=== PATIENT | female | born 1970 | race Caucasian/White ===

== ENCOUNTER 2016-07-04 16:23 | Emergency (ER) | payer OTHER ==
[~2016-07-04] VITALS: Ht 165.1 cm; Wt 60.0 kg
[~2016-07-04 16:23] MED LIST: CALC-187 PO; MULTCAP13 PO; PERC5TAB12 PO; TRIPCAP4 PO; VITA10002 PO; VITA100O PO; ZOFR8TAB4 PO
[2016-07-04 16:24] VITALS: BP 121/76; PULSE 69; RESP 16; TEMP 97.6; O2SAT 100
--- NOTE | 2016-07-04 17:11 | PD ---
HPI Chief Complaint: Injury Time Seen by Provider: 17:00 Travel History International Travel<30 days: No Contact w/Intl Traveler<30days: No Traveled to known affect area: No History of Present Illness HPI 46 year old female presents for evaluation of right ankle and foot pain and left knee abrasion. She reports that prior to arrival in the parking lot, stepped on some acorns and twisted her right ankle in an inversion mechanism. She has pain in the lateral right ankle and foot which is aching, constant, worse with movement. She has a pain associated with the abrasions to the anterior left knee as well. She is able to ambulate, mostly puts her weight on her left leg secondary to the right ankle and foot pain. She denies any other injuries and she has no other complaints. She believes that her last tetanus vaccination was within 5 years. PFSH Past Medical History Cancer: No Cardiovascular Problems: No Diabetes: No Endocrine: No Hepatitis: No Hiatal Hernia: No Immune Disorder: No Musculoskeletal: No Neurologic: No Reproductive: No Respiratory: No Thyroid Disease: No Past Surgical History Abdominal Surgery: Yes () Body Medical Devices: NONE Cardiac Surgery: No Section: Yes Ear Surgery: No Endocrine Surgery: No Eye Surgery: No Genitourinary Surgery: No Gynecologic Surgery: No Oral Surgery: No Pacemaker: No Thoracic Surgery: No Social History Alcohol Use: Yes (RARE) Tobacco Use: No Allergies-Medications (Allergen,Severity, Reaction): Coded Allergies: Latex (Verified Allergy, Severe, Rash, 07/04/16) Sulfa (Verified Allergy, Severe, Rash, 07/04/16) EDEMA Betadine (Verified Allergy, Unknown, 07/04/16) Reported Meds & Prescriptions Reported Meds & Active Scripts Active Reported Zofran Odt (Ondansetron HCl) 8 Mg Tab 8 Mg PO Q8 PRN Percocet 5-325 mg (Oxycodone/Acetaminophen) Oxycodone 5/325 Acetaminophen Tab 1- 2 Tab PO Q4H PRN Calcium 500/Vitamin D3 (Calcium Carbonate/Cholecalciferol) /Vit D3 Tab 1 Tab PO DAILY Vitamin B12 (Cyanocobalamin) 1,000 Mcg Tab 1,000 Mcg PO DAILY Triple Martell Complex (Martell 3 Fatty Acids-Martell 6 Fa) Cap 1 Cap PO DAILY Vitamin E 100 Unit Oil 100 Unit PO DAILY Multi Complete (Multiple Vitamins W/ Minerals) Complete Cap 1 Tab PO DAILY Review of Systems Musculoskeletal: Positive: Pain Skin: Positive Other (positive for abrasion) Physical Exam Narrative GENERAL: Well-developed well-nourished female in no acute distress SKIN: Warm and dry. Abrasion anterior left knee HEAD: Atraumatic. Normocephalic. EYES: Pupils equal and round. No scleral icterus. No injection or drainage. CARDIOVASCULAR: Regular rate and rhythm. No murmur appreciated. RESPIRATORY: No accessory muscle use. Clear to auscultation. Breath sounds equal bilaterally. MUSCULOSKELETAL: No obvious deformities. Tender to palpation to the lateral right ankle, proximal lateral right foot overlying the fourth and fifth metatarsals. There is pain with dorsi and plantar flexion of the ankle, the Achilles tendon is intact, negative Ogden's test. 2+ dorsalis pedis and posterior tibial pulses. Abrasion to the anterior left knee. No obvious bony deformity. Full range of motion of the left knee. No obvious laxity on stress examination. NEUROLOGICAL: Awake and alert. No obvious cranial nerve deficits. Motor grossly within normal limits. Normal speech. Data Data Last Documented VS Vital Signs Date Time Temp Pulse Resp B/P Pulse Ox O2 Delivery O2 Flow Rate FiO2 07/04/16 16:24 97.6 69 16 121/76 100 Room Air Orders Ankle, Complete ([id number]) (07/04/16 ) Foot, Complete ([id number]) (07/04/16 ) Ice/Cold Pack (07/04/16 17:07) Wound Care (07/04/16 17:07) MDM Medical Decision Making Medical Screen Exam Complete: Yes Emergency Medical Condition: Yes Medical Record Reviewed: Yes Differential Diagnosis Lateral ankle sprain, avulsion fracture, fibular fracture, metatarsal fracture, contusion, abrasion Narrative Course 46 year old female presents after twisting her right ankle with right ankle and foot pain, abrasion to the anterior left knee. X-ray imaging of the right foot and ankle be obtained. Local wound care provided. Ice pack provided. X-ray imaging reveals no acute abnormalities. Her examination history are consistent with lateral right ankle sprain, left knee abrasion. The patient is stable for discharge. Diagnosis Primary Impression: Right ankle sprain Qualified Code: S93.401A - Sprain of right ankle, unspecified ligament, initial encounter Additional Impression: Abrasion, left knee, initial encounter Additional Instructions: Ice pack several times a day to the 15 minutes at a time to reduce and prevent swelling. Elevate the right leg above the level of the heart is much can over the next 3 days. Gradually return to normal activities avoiding activities that increase or pain. Wash the wounds on the left knee twice a day with soap and water. Return for any emergent medical conditions. Med/Other Pt SpecificInfo: No Change to Meds, Wound Care Disposition: 01 DISCHARGE HOME Condition: Stable Silvestre Watters Jul 04, 2016 17:11 Silvestre Watters Jul 04, 2016 17:11
--- NOTE | 2016-07-04 17:44 | RADRPT ---
EXAM DATE/TIME: 07/04/2016 17:26 [facility] COMPARISON: No previous studies available for comparison. INDICATIONS : Right foot pain after fall. MEDICAL HISTORY : None. SURGICAL HISTORY : None. ENCOUNTER: Initial ACUITY: 1 day PAIN SCORE: 10/10 LOCATION: Right superior foot. FINDINGS: Three view examination of the right foot demonstrates no soft tissue swelling, dislocation, or fractu re. The tarsal bones appear intact. The interphalangeal and metatarsophalangeal joints are intact. The calcaneus is intact. Bony mineralization is normal. CONCLUSION: Negative for fracture or dislocation. Follow up in 7-10 days is suggested if symptoms persist. Nate Mckeon MD FACR on July 04, 2016 at 17:42 Board Certified Radiologist. This report was verified electronically.
--- NOTE | 2016-07-04 17:45 | RADRPT ---
EXAM DATE/TIME: 07/04/2016 17:29 [facility] COMPARISON: No previous studies available for comparison. INDICATIONS : Right ankle pain after fall. MEDICAL HISTORY : None. SURGICAL HISTORY : None. ENCOUNTER: Initial ACUITY: 1 day PAIN SCORE: 10/10 LOCATION: Right medial ankle. FINDINGS: Three view exam was performed of the right ankle. The bony structures are in normal alignment. No e vidence of fracture, dislocation, or soft tissue swelling. The ankle mortise is intact. No radiopaq ue foreign bodies are seen. Bony mineralization is normal. CONCLUSION: Negative for fracture or dislocation. Follow up in 7-10 days is suggested if symptoms persist. Nate Mckeon MD FACR on July 04, 2016 at 17:43 Board Certified Radiologist. This report was verified electronically.
== END 2016-07-04 18:05 | disposition home or self-care (01) ==
LOC: NEPB 16:23
DX: S93.401A Sprain of unspecified ligament of right ankle, initial encounter (principal); S80.212A Abrasion, left knee, initial encounter; X50.1XXA Overexertion from prolonged static or awkward postures, initial encounter; Y92.481 Parking lot as the place of occurrence of the external cause
CPT/HCPCS: 73610; 73630; 99283; L1906